=== PATIENT | female | born 1955 | race Two or more races ===

== ENCOUNTER 2023-11-27 05:54 | Day surgery (SDC) | payer OTHER ==
[2023-11-19 13:08] VITALS: BP 105/63
[~2023-11-27] VITALS: Ht 144.8 cm; Wt 51.3 kg
[~2023-11-27 05:54] MED LIST: FOSAMAX70 MG PO; HORIZANT300 MG PO; ROSUVASTATIN CA20 MG PO; SYNJARDY 12.5-1 EACH PO; TOPROL XL25 M1 PO; ZESTRIL5 MG PO
[2023-11-27] MEDS ORDERED: CEFTRIAXONE SODIUM 2,000 MG VIAL ONE (08:52)
[2023-11-27] MEDS ORDERED: METRONIDAZOLE/SODIUM CHLORIDE 500 MG/100 ML PIGGYBACK IV ONE (08:53)
[2023-11-27] MEDS ORDERED: POVIDONE-IODINE 118 ML BOTT TOP ONE (09:47)
[2023-11-27] MEDS ORDERED: BUPIVACAINE HCL/MPF 0.5% 30ML VIAL ONE (09:47)
[2023-11-27] MEDS ORDERED: DIBUCAINE 30 GM TUBE ONE (09:47)
[2023-11-27] MEDS ORDERED: LIDOCAINE HCL 1%/EPINEPHRINE 20ML VIAL IJ ONE (09:48)
[2023-11-27] MEDS ORDERED: SUGAMMADEX SODIUM 200 MG/2 ML VIAL IV ONE (10:27)
[2023-11-27] MEDS ORDERED: HEMOSTATIC MATRIX 1 KIT KIT TOP ONE (11:15)
== END 2023-11-27 14:00 | disposition home or self-care (01) ==
LOC: CIR.AMB 05:54
PROVIDERS: ATTEND Colon & Rectal Surgery
DX: K64.2 Third degree hemorrhoids (principal); K64.4 Residual hemorrhoidal skin tags; Z88.6 Allergy status to analgesic agent; E11.9 Type 2 diabetes mellitus without complications; I10 Essential (primary) hypertension; M19.90 Unspecified osteoarthritis, unspecified site; H52.209 Unspecified astigmatism, unspecified eye; L40.9 Psoriasis, unspecified; K59.00 Constipation, unspecified